=== PATIENT | male | born 1950 | race Caucasian/White ===

== ENCOUNTER 2019-06-03 01:39 | Outpatient (CLI) | payer OTHER, SELFPAY ==
--- NOTE | 2019-06-03 06:46 | DI.US_ITS ---
EXAM: US PROSTATE BIOPSY CLINICAL HISTORY: active surveillance to monitor prostate cancer,c61 TECHNIQUE: Ultrasound performed using standard protocol. COMPARISON: No exams were available for comparison FINDINGS: Ultrasound guidance was provided for prostate biopsy performed by Dr. Horta. Please see Dr. Horta's procedure note. Prostate volume was 45 cc. IMPRESSION:
--- NOTE | 2019-06-03 08:20 | PROST_PTH ---
PATIENT: Lino Esteban LOC: [facility] U#:[id number] AGE/SX: 68/M ROOM: RE06/03/[address]: Roberto Horta MD : 1950 BED: DIS: 06/03/2019 SPEC #: [id number] RECD: 06/03/19 12:37 STATUS: CORRINE REQ #: [id number] MENDEZ: 06/03/19 08:[address]: Roberto Horta DEPT: Surgical Specimen RECD BY: Lily Ventura ENTERED: 06/03/19 12:39 SP TYPE: PROST OTHR DR: Eduardo Ledezma Tissues: 1 - PROSTATE NEEDLE BIOPSY 2 - PROSTATE NEEDLE BIOPSY 3 - PROSTATE NEEDLE BIOPSY 4 - PROSTATE NEEDLE BIOPSY 5 - PROSTATE NEEDLE BIOPSY 6 - PROSTATE NEEDLE BIOPSY 7 - PROSTATE NEEDLE BIOPSY 8 - PROSTATE NEEDLE BIOPSY 9 - PROSTATE NEEDLE BIOPSY 10 - PROSTATE NEEDLE BIOPSY 11 - PROSTATE NEEDLE BIOPSY 12 - PROSTATE NEEDLE BIOPSY Procedures: GROSS AND MICRO LEVEL 4 IMMUNOPEROXIDASE STAIN Comments: [id number]
--- NOTE | 2019-06-03 10:03 | ROE_ITS ---
DATE OF PROCEDURE: June 03, 2019 PRE-PROCEDURE DIAGNOSIS: Prostate cancer. POST-PROCEDURE DIAGNOSIS: Same. PROCEDURE: Ultrasound-guided biopsy of the prostate. SURGEON: Roberto Horta M.D. ANESTHESIA: Local. COMPLICATIONS: None. HISTORY: This is a 68-year-old gentleman who was previously identified as having adenocarcinoma of t he prostate. His initial biopsy was in April of 2015. He had Al 3+3/10 adenocarcinoma of the prostate in the left mid prostate. A repeat biopsy in June of 2017 again showed a Al grade 3+3/10, but this time it was from the right base of the prostate. He has not had any definitive prostate cancer treatment. He presents now for a repeat biopsy. PROCEDURE: The patient was given an antibiotic and mechanical bowel prep. He was brought to the rad iology suite on 06/03/19. He was placed in the left lateral position. Digital rectal exam revealed no specific nodules. Transrectal imaging of the prostate was then performed using a variable-length transducer. The prost ate was imaged in transverse and longitudinal planes. The prostatic volume was calculated at 45 cc's. No specific hypoechoic areas were seen in the peripheral zone. Some cystic and hypoechoic areas were seen in the transition zone. A periprostatic nerve block was then performed using 1% Xylocaine without epinephrine. A total of tw elve laterally-directed biopsies were taken, labeled and sent to Pathology for permanent section. The patient tolerated the procedure well with no complications. cc: BART Elliott
== END 2019-06-03 01:59 ==
PROVIDERS: Visit Provider Urology
DX: C61 Malignant neoplasm of prostate (principal)
CPT/HCPCS: 55700; 76942; 76872; 88305; 88361

== ENCOUNTER 2023-10-09 09:30 | Outpatient (REF) | payer OTHER, SELFPAY ==
--- NOTE | 2023-10-09 09:20 | PROST_PTH ---
PATIENT: Lino Esteban LOC: [facility] U#:[id number] AGE/SX: 72/M ROOM: RE10/09/[address]: Roberto Horta MD : 1950 BED: DIS: 10/09/2023 SPEC #: [id number] RECD: 10/09/23 12:35 STATUS: CRORINE RE #: [id number] MENDEZ: 10/09/23 09:[address]: Roberto Horta DEPT: Surgical Specimen RECD BY: Lily Ventura ENTERED: 10/09/23 12:36 SP TYPE: PROST OTHR DR: Arcenio Ledezma Tissues: 1 - PROSTATE NEEDLE BIOPSY 2 - PROSTATE NEEDLE BIOPSY 3 - PROSTATE NEEDLE BIOPSY 4 - PROSTATE NEEDLE BIOPSY 5 - PROSTATE NEEDLE BIOPSY 6 - PROSTATE NEEDLE BIOPSY 7 - PROSTATE NEEDLE BIOPSY 8 - PROSTATE NEEDLE BIOPSY 9 - PROSTATE NEEDLE BIOPSY 10 - PROSTATE NEEDLE BIOPSY 11 - PROSTATE NEEDLE BIOPSY 12 - PROSTATE NEEDLE BIOPSY Procedures: GROSS AND MICRO LEVEL 4 IMMUNOPEROXIDASE STAIN Comments: [id number]
== END 2023-10-09 09:31 | disposition home or self-care (01) ==
LOC: LBN 09:30
PROVIDERS: PCP Nurse Practitioner Family; Visit Provider Urology
DX: C61 Malignant neoplasm of prostate (principal)
CPT/HCPCS: 88305; 88361